=== PATIENT | male | born 1955 | race Caucasian/White ===

== ENCOUNTER → 2020-01-09 16:17 | Outpatient (CLI) | payer BC, SELFPAY ==
--- NOTE | ~2020-01-09 | XR_ITS ---
EXAMINATION: XR knee LT 3V, XR knee RT 3V DATE: 01/09/2020 17:23 INDICATION: Chronic bilateral knee pain TECHNIQUE: 1. Weight bearing anteroposterior, sunrise, and flexed lateral views of the right knee were obtained. 2. Weight bearing anteroposterior, sunrise, and flexed lateral views of the left knee were obtained. COMPARISON: None. FINDINGS: Alignment is normal at both knees. No fracture. Tiny marginal osteophytes in all 3 compartments of b oth knees with mild joint space narrowing and the bilateral medial compartments consistent with mild osteoarthritis. Small bilateral knee joint effusions with no layering lipohemarthrosis. Couple hetero topic ossicles in the musculature of the right calf which may represent sequela of old trauma. Soft t issues are unremarkable. IMPRESSION: 1. Relatively symmetric mild medial compartment predominant, compatible osteoarthritis of both knees with small bilateral joint effusions. Reviewed, dictated and finalized at location . [employer] OPERATOR IMPRESSION: 1. Relatively symmetric mild medial compartment predominant, compatible osteoar thritis of both knees with small bilateral joint effusions.
== END ==
DX: M17.0 Bilateral primary osteoarthritis of knee (principal)
CPT/HCPCS: 73562

== ENCOUNTER → 2020-05-31 11:10 | Outpatient (CLI) | payer BC, SELFPAY ==
--- NOTE | ~2020-05-31 | XR_ITS ---
EXAMINATION: XR lumbar spine min 4V DATE: 05/31/2020 12:20 INDICATION: Low back pain TECHNIQUE: Anteroposterior, lateral, and bilateral oblique views of the lumbar spine, and cone-down l ateral view of the lumbosacral junction were obtained. COMPARISON: None. FINDINGS: The vertebral body heights and alignment are normal. There is moderate loss of intervertebr al disc space height at L5-S1 and mild loss of intervertebral disc space height at L1-2 through L3-4. Small degenerative osteophytes project from the anterior endplates of multiple vertebral bodies. Sky cified atherosclerosis is noted. There is mild facet osteoarthritis of the lower lumbar spine. The kristi wel gas pattern is unremarkable. IMPRESSION: 1. Mild to moderate lumbar spondylosis without acute findings. Reviewed, dictated and finalized at location B.
== END ==
DX: M54.41 Lumbago with sciatica, right side (principal); M47.896 Other spondylosis, lumbar region
CPT/HCPCS: 72110